=== PATIENT | female | born 1985 | race Caucasian/White ===

== ENCOUNTER 2017-09-19 19:54 | Emergency (ER) | payer SELFPAY ==
[~2017-09-19] VITALS: Ht 154.9 cm; Wt 47.5 kg
[2017-09-19] MEDS ORDERED: PEN-VEE K,VEET500 MG PO (21:16)
[2017-09-19 21:23] VITALS: BP 122/83
== END 2017-09-19 21:25 | disposition home or self-care (01) ==
LOC: EME 19:54
DX: K04.7 Periapical abscess without sinus (principal); K02.9 Dental caries, unspecified; F17.210 Nicotine dependence, cigarettes, uncomplicated
CPT/HCPCS: 99281; 99284